=== PATIENT | female | born 1980 | race Caucasian/White ===

== ENCOUNTER 2018-01-19 07:17 | Day surgery (SDC) | payer BC, OTHER ==
[2018-01-19] MEDS ORDERED: cefOXitin 2 GM in Sodium Chloride 0.9% 100 ML IV ONE (07:30)
[2018-01-19] MEDS ORDERED: cefOXitin 2 GM Vial IV ONE (07:30)
[2018-01-19] MEDS ORDERED: Lactated Ringers 1,000 ML IV SCH (07:30)
[2018-01-19] MEDS ORDERED: Sodium Chloride 0.9% 10 ML Syringe FLUSH PRN (07:30)
[2018-01-19] MEDS ORDERED: cefOXitin 1 GM Vial IV ONE (09:00)
[2018-01-19] MEDS ORDERED: Ketorolac 30 MG/ML SDV IVPUSH ONE (09:00)
[2018-01-19] MEDS ORDERED: Dexamethasone 4 MG/ML 5 ML MDV IVPUSH ONE (09:00)
[2018-01-19] MEDS ORDERED: Rocuronium 100 MG/10 ML MDV IV ONE (09:00)
[2018-01-19] MEDS ORDERED: Lidocaine 2% 100 MG/5 ML Syringe IVPUSH ONE (09:00)
[2018-01-19] MEDS ORDERED: Ondansetron 4 MG/2 ML SDV IVPUSH ONE (09:00)
[2018-01-19] MEDS ORDERED: Propofol 200 MG/20 ML SDV IV ONE (09:00)
[2018-01-19] MEDS ORDERED: Glycopyrrolate 0.2 MG/ML 5 ML MDV IV ONE (09:00)
[2018-01-19] MEDS ORDERED: fentaNYL 100 MCG/2 ML SDV IV ONE (09:00)
[2018-01-19] MEDS ORDERED: Neostigmine Methylsulfate 10 MG/10 ML MDV IVPUSH ONE (09:00)
[2018-01-19] MEDS ORDERED: Midazolam 1 MG/ML 2 ML SDV IV ONE (09:00)
[2018-01-19] MEDS ORDERED: Lidocaine 1% with EPINEPHrine 1:100,000 20 ML MDV INJECT ONE (09:21)
[2018-01-19] MEDS ORDERED: Bupivacaine 0.5% 30 ML SDV INJECT ONE (09:21)
--- NOTE | 2018-01-19 10:05 | PCM.OPNOTE ---
- General Post-Op/Procedure Note Date of Surgery/Procedure: 01/19/18 Operative Procedure(s): lap cholecystectomy Findings: critical view obtained. gallbladder and stones removed. Pre Op Diagnosis: sx gallstones Post-Op Diagnosis: Same Anesthesia Technique: General ET Tube, Local (5 ml 1 % lido with epi/0.5% buvipicaine) Primary Surgeon: Tomi Matthew Anesthesia Provider: Ora Vazquez Pathology: gallbladder and contents Complications: None Condition: Good Free Text/Narrative:: see dictation
[2018-01-19] MEDS ORDERED: fentaNYL 100 MCG/2 ML SDV IVPUSH ONE (11:20)
--- NOTE | 2018-01-19 12:16 | OR ---
DATE OF OPERATION: 01/19/2018 SURGEON: Tomi Matthew MD PROCEDURE PERFORMED: Laparoscopic cholecystectomy. PREOPERATIVE DIAGNOSIS: Symptomatic gallstones. POSTOPERATIVE DIAGNOSIS: Symptomatic gallstones. INDICATIONS FOR PROCEDURE: This is a 37-year-old white female who has had symptomatic gallstones. Her symptomatology has increased in frequency recently, and she was offered and accepted a lap cholecystectomy. INTRAOPERATIVE FINDINGS: Critical view was obtained. 5 mL of 1:1 mixture of 1% lidocaine with epinephrine and 0.5% bupivacaine was used for local. DESCRIPTION OF PROCEDURE: After an excellent general anesthetic was administered via endotracheal tube, the patient was prepped and draped in the usual sterile manner. A point approximately three fingerbreadths above the umbilicus was infiltrated with a 1:1 mixture of 1% lidocaine with epinephrine and 0.5% bupivacaine. A vertical midline incision was carried out using a #15 scalpel blade. Blunt dissection was carried out exposing the midline fascia. The fascia had two stay sutures of 0 Vicryl placed on either side, which was then elevated. An incision was made through the abdominal wall and into the abdominal cavity. After digital palpation to ensure no adhesions, a 10.5-mm Monique trocar was inserted. The underlying intestine was inspected. No evidence of any underlying intestinal injury. Under direct visualization, three 5 mm ports were placed, one in the midline epigastrium and two below the right costal margin at the level of the midclavicular and anterior axillary line. This was done by infiltrating full thickness with our local, making a stab incision with a #15 scalpel blade and inserting the trocars. The gallbladder was grasped and retracted in a cephalad fashion. Careful blunt dissection was carried out exposing the cystic duct and cystic artery. After obtaining the critical view, two clips were placed proximally on the cystic duct and one distally, and this was transected. In likewise fashion, the cystic artery had two clips placed proximally and one distally prior to transection. There was a small branch that had some backbleeding, and this was clipped with two clips as well. This was coming off the body of the gallbladder itself. L-hook cautery dissection was then used to dissect the gallbladder free from the underlying gallbladder fossa. The specimen was passed into a specimen bag and delivered out through the umbilical port. There was some spillage of bile as well as several small stones, but these were aspirated. After irrigating until clear and ensuring excellent hemostasis, the 5 mm ports were removed under direct visualization and the 10 mm port was closed as well. The fascial defect was closed with a running 0 Vicryl, 3-0 Vicryl was used to close the periumbilical port, and 4-0 Vicryl was used to close the skin for the 5 mm ports. Needle, sponge, and instrument counts were reported as correct. The patient was taken to Recovery in a good condition. /[id number] /MODL
[2018-01-19] MEDS ORDERED: hydrOXYzine HCl 25 MG Tab PO PRN (12:46)
[2018-01-19 12:53] VITALS: BP 150/78
== END 2018-01-19 13:35 | disposition home or self-care (01) ==
LOC: FB.SDS 07:17
PROVIDERS: ATTEND Surgery
DX: K80.10 Calculus of gallbladder with chronic cholecystitis without obstruction (principal); F41.1 Generalized anxiety disorder; H52.10 Myopia, unspecified eye; Z79.899 Other long term (current) drug therapy; Z88.5 Allergy status to narcotic agent; Z88.6 Allergy status to analgesic agent; Z98.84 Bariatric surgery status
CPT/HCPCS: 81025; 88304; A9270-GY; J0131; J0694; J1100; J1885; J2001; J2250; J2405; J2704; J2710; J3010; J3490; J7120